=== PATIENT | female | born 1995 | race Caucasian/White ===

== ENCOUNTER 2018-11-19 18:52 | Inpatient (IN) ==
[2018-11-19 19:21] LABS: BILIRUBIN URINE NEGATIVE (NEGATIVE); BLOOD URINE NEGATIVE (NEGATIVE); COLOR YELLOW; GLUCOSE URINE NEGATIVE (NEGATIVE); KETONE URINE NEGATIVE (NEGATIVE); LEUKOCYTES URINE NEGATIVE (NEGATIVE); NITRITE URINE NEGATIVE (NEGATIVE); PROTEIN URINE NEGATIVE (NEGATIVE); SP GRAVITY URINE 1.024; TURBIDITY URINE HAZY (CLEAR); UR EPITHELIAL CELLS >10 /HPF (<10); URINE BACTERIA 2+ /HPF; URINE RBC <10 /HPF (<10); URINE SOURCE CLEAN CATCH; URINE WBC <10 /HPF (<10); UROBILINOGEN URINE NORMAL (NORMAL)
[2018-11-19 19:29] LABS: BASO# 0.05 X1000 (0.0-0.2); BASO% 0.7 % (0.0-0.8); EOS# 0.23 X1000 (0.0-0.7); EOS% 3.1 % (0.0-10.0); HEMATOCRIT 35.4 % (37.0-47.0); HEMOGLOBIN 11.6 g/dL (12.0-16.0); IMM GRAN# 0.02 X1000 (0.0-0.04); IMM GRAN% 0.3 % (0.0-0.5); LYMPH% 32.7 % (20.5-51.1); MCH 28.4 PG (27-31); MCHC 32.8 g/dL (33-37); MCV 86.8 FL (81-99); MONO# 0.51 X1000 (0.11-0.59); MONO% 6.9 % (1.7-9.3); MPV 10.5 FL (7.4-10.4); NEUT# 4.14 X1000 (1.4-6.5); NEUT% 56.3 % (42.2-75.2); PLT 343 X1000 (130-400); RBC 4.08 XMIL (4.2-5.4); RDW 13.3 % (11.5-14.5); WBC 7.35 X1000 (4.8-10.8)
[2018-11-19 19:46] LABS: AGAP 13; ALB/GLOB RATIO 1.5; ALBUMIN 4.2 g/dL (3.5-5.0); ALKALINE PHOSPHATASE 57 U/L (32-104); BUN 14 mg/dL (8-22); CALCIUM 9.2 mg/dL (8.8-10.2); CHLORIDE 104 mmol/L (98-107); COSMO 279; CREATININE 0.7 mg/dL (0.5-0.9); ESTIMATED GFR > 60; GLUCOSE 116 mg/dL (70-104); GOT 18 U/L (10-30); GPT 13 U/L (10-36); POTASSIUM 4.2 mmol/L (3.5-5.1); SODIUM 139 mmol/L (136-145); TCO2 22 mmol/L (25-35); TOTAL BILIRUBIN 0.21 mg/dL (0.20-1.00)
[2018-11-19 20:09] LABS: AMYLASE 50 U/L (20-200); LIPASE 43 U/L (13-60)
[2018-11-19 21:19] LABS: UR AMPHETAMINES QUAL PRESUMPTIVE POSITIVE (NONE DETECT); UR BARBITUATES QUAL NONE DETECTED (NONE DETECT)
[2018-11-19 21:20] LABS: UR BENZODIAZEPIN QUAL NONE DETECTED (NONE DETECT); UR CANNABINOIDS QUAL NONE DETECTED (NONE DETECT); UR COCAINE QUAL NONE DETECTED (NONE DETECT); UR METHADONE QUAL NONE DETECTED (NONE DETECT); UR OPIATES QUAL NONE DETECTED (NONE DETECT); UR OXYCODONE QUAL NONE DETECTED (NONE DETECT); UR PCP QUAL NONE DETECTED (NONE DETECT)
[2018-11-20] MEDS ORDERED: ZOFRAN IV PRN ×2 (00:03→02:57)
[2018-11-20] MEDS ORDERED: NS 1,000 ML IV ONE (00:03)
[2018-11-20] MEDS ORDERED: MORPHINE IV PRN (00:03)
[2018-11-20] MEDS ORDERED: TORADOL IV PRN (00:03)
--- NOTE | 2018-11-20 00:03 | PROVIDER DOCUMENTATION ---
This chart was entered by Sadia Desouza Scribe, acting as scribe for Piper Thomas MD. HPI-Abdominal Pain/GI Problem - General Chief Complaint: Abdominal Pain Stated Complaint: GALLBLADDER PROBLEMS Time Seen by Provider: 11/19/18 21:10 Allergies/Adverse Reactions: Patient Allergies Allergy/AdvReac Type Severity Reaction Status Date / Time apple Allergy HIVES Verified 11/17/18 20:23 coconut Allergy HIVES Verified 11/17/18 20:23 Penicillins Allergy ANAPHYLAXIS Verified 11/17/18 20:23 Home Medications: Home Medication List Medication Instructions Recorded Confirmed Last Taken Type NK [No Home Medications] 11/17/18 11/17/18 Unknown History - History of Present Illness-ABD Nature of Presenting Problems: 23 yof c/o ruq pain, nvd and syncopal episodes when pain occurs. pt is poor historian but sts she has been to hospital 5 different times and to 3 different er's for similar symptoms. pt was to have sx in h[place] to remove gall bladder but never went and has never followed up with a surgeon. pt has no pcp. pt denies fever and dysuria. Abdominal Pain Onset Location: reports: RUQ Pain Radiation: reports: no radiation Review of Systems - Adult - REVIEW OF SYSTEMS - ADULT Constitutional: reports: no symptoms reported Eyes: reports: no symptoms reported Ears, Nose, Mouth & Throat: reports: no symptoms reported Cardiovascular: reports: no symptoms reported Respiratory: reports: no symptoms reported Gastrointestinal: reports: see HPI, abdominal pain (ruq), diarrhea, nausea, vomiting. denies: constipation, poor appetite, rectal bleeding Genitourinary: reports: no symptoms reported. denies: dysuria, frequency, incontinence Musculoskeletal: reports: no symptoms reported Integumentary: reports: no symptoms reported Neurological: reports: no symptoms reported Psychiatric: reports: no symptoms reported Endocrine: reports: no symptoms reported Hematologic/Lymphatic: reports: no symptoms reported Allergic/Immunologic: reports: no symptoms reported All Other Systems: Reviewed and Negative Past History - Adult - PAST MEDICAL HISTORY-ADULT Review of Records: reports: Old Records Reviewed, Nursing Assessment Review, Medications Reviewed, Social history reviewed & non-contributory. Major Childhood Illnesses: reports: denies history Cardiovascular: reports: denies history Respiratory: reports: denies history Gastrointestinal: reports: denies history Obstetrical/Gynecological: reports: denies history Genitourinary: reports: denies history Musculoskeletal: reports: denies history Neurological: reports: denies history Endocrine/Immune: reports: denies history Other Conditions: reports: denies history - IMMUNIZATION STATUS Childhood Immunizations: See Nurse Assessment Flu Vaccine: See Nurse Assessment - FAMILY HISTORY Family History: reviewed, not pertinent Physical Exam-General - PHYSICAL EXAM-ADULT Initial Vital Signs Reviewed: Yes - CONSTITUTIONAL General Appearance: appears well, alert, mild distress (uncomfortable appearing) - EYES Eyes: PERRL/EOMI, pink conjunctivae - HEAD, EARS, NOSE, MOUTH & THROAT HENMT: normocephalic/atraumatic, moist mucous membranes - NECK Neck: non-tender, full range of motion, supple, normal inspection - RESPIRATORY Respiratory: chest non-tender, lungs clear, normal breath sounds - CARDIOVASCULAR Cardiovascular: normal peripheral pulses, regular rate, rhythm - GASTROINTESTINAL (ABDOMEN) Abdominal Exam: normal bowel sounds, soft, tenderness (ruq to palp mild). negative: non tender, distended, rebound - LYMPHATIC Lymphatic: no adenopathy - MUSCULOSKELETAL Back Exam: normal inspection, no CVA tenderness, no vertebral tenderness Extremity: normal range of motion, non-tender, normal inspection Peripheral Pulses: radial (R): 2+, radial (L): 2+ - SKIN Integumentary: normal color, normal turgor, warm/dry - NEUROLOGIC Neurologic: grossly normal, no motor/sensory deficits - PSYCHIATRIC Psych/Mental Status: normal mood/affect, normal thought content, normal thought process, oriented x 3 Progress - PLAN OF CARE/RESULTS Progress/Plan/Lab Results: Vital Signs - 8 hr 11/19/18 18:55 Temperature 97.5 F L Pulse Rate 98 H Respiratory Rate 17 Blood Pressure 99/66 O2 Sat by Pulse Oximetry 99 Bedside Urine ED: Urine Bedside Start: 11/19/18 19:09 Freq: ORDERED Status: Active Protocol: Activity Type Activity Date Activity User E-Sign Co-Sign Detail Recorded Client Recorded Date Recorded By Document 11/19/18 19:10 [id number] 11/19/18 19:10 [id number] 11/19/18 19:10 Point of Care [Bedside Point of Care] -Lot # [id number] - Results Negative -Control Line Visible? Yes Laboratory Results - last 24 hr 11/19/18 11/19/18 11/19/18 19:08 19:09 19:09 WBC 7.35 RBC 4.08 L Hgb 11.6 L Hct 35.4 L MCV 86.8 MCH 28.4 MCHC 32.8 L RDW Std Deviation 13.3 Plt Count 343 MPV 10.5 H Immature Gran % (Auto) 0.3 Neut % (Auto) 56.3 Lymph % (Auto) 32.7 [place] % (Auto) 6.9 Eos % (Auto) 3.1 Baso % (Auto) 0.7 Immature Gran # (Auto) 0.02 Neut # (Auto) 4.14 Lymph # (Auto) 2.40 [place] # (Auto) 0.51 Eos # (Auto) 0.23 Baso # (Auto) 0.05 Sodium 139 Potassium 4.2 D Chloride 104 Carbon Dioxide 22 L Anion Gap 13 BUN 14 Creatinine 0.7 Estimated GFR/1.73 m2 > 60 BUN/Creatinine Ratio 20 Glucose 116 H Calculated Osmolality 279 Calcium 9.2 Total Bilirubin 0.21 AST 18 ALT 13 Alkaline Phosphatase 57 Total Protein 7.0 Albumin 4.2 Globulin 2.8 Albumin/Globulin Ratio 1.5 Amylase 50 Lipase 43 Urine Source Urine Color Urine Turbidity Urine pH Ur Specific [place] Urine Protein Ur Glucose (Stick) Ur Ketones (Stick) Urine Blood Urine Nitrite Urine Bilirubin Urobilinogen Dipstick Urine Leukocytes Urine WBC (Auto) Urine RBC (Auto) U Epithel Cells (Auto) Urine Bacteria (Auto) Urine Opiates Screen Ur Oxycodone Screen Ur Methadone, Qual Ur Barbiturates Screen Ur Phencyclidine Scrn Ur Amphetamines Screen U Benzodiazepines Scrn Urine Cocaine Screen U Cannabinoids Screen 11/19/18 11/19/18 19:09 19:47 WBC RBC Hgb Hct MCV MCH MCHC RDW Std Deviation Plt Count MPV Immature Gran % (Auto) Neut % (Auto) Lymph % (Auto) [place] % (Auto) Eos % (Auto) Baso % (Auto) Immature Gran # (Auto) Neut # (Auto) Lymph # (Auto) [place] # (Auto) Eos # (Auto) Baso # (Auto) Sodium Potassium Chloride Carbon Dioxide Anion Gap BUN Creatinine Estimated GFR/1.73 m2 BUN/Creatinine Ratio Glucose Calculated Osmolality Calcium Total Bilirubin AST ALT Alkaline Phosphatase Total Protein Albumin Globulin Albumin/Globulin Ratio Amylase Lipase Urine Source CLEAN CATCH Urine Color YELLOW Urine Turbidity HAZY Urine pH 6.0 Ur Specific [place] 1.024 Urine Protein NEGATIVE Ur Glucose (Stick) NEGATIVE Ur Ketones (Stick) NEGATIVE Urine Blood NEGATIVE Urine Nitrite NEGATIVE Urine Bilirubin NEGATIVE Urobilinogen Dipstick NORMAL Urine Leukocytes NEGATIVE Urine WBC (Auto) <10 Urine RBC (Auto) <10 U Epithel Cells (Auto) >10 A Urine Bacteria (Auto) 2+ Urine Opiates Screen NONE DETECTED Ur Oxycodone Screen NONE DETECTED Ur Methadone, Qual NONE DETECTED Ur Barbiturates Screen NONE DETECTED Ur Phencyclidine Scrn NONE DETECTED Ur Amphetamines Screen PRESUMPTIVE POSITIVE A U Benzodiazepines Scrn NONE DETECTED Urine Cocaine Screen NONE DETECTED U Cannabinoids Screen NONE DETECTED Orders Category Date Time Status ED: Urine Bedside ORDERED Care 11/19/18 19:09 Active US GB < RUQ (LIMITED) [US] Stat Exams 11/19/18 21:25 Ordered AMYLASE [CHEM] Stat Lab 11/19/18 19:08 Completed CBC WITH DIFF [HEME] Stat Lab 11/19/18 19:09 Completed COMPREHENSIVE METABOLIC PANEL [CHEM] Stat Lab 11/19/18 19:09 Completed LIPASE [CHEM] Stat Lab 11/19/18 19:08 Completed URINALYSIS [URINALYSIS] Stat Lab 11/19/18 19:09 Completed URINE DRUG SCREEN Stat Lab 11/19/18 19:47 Completed Result Diagrams: 11/19/18 19:09 11/19/18 19:09 - ULTRASOUND (By Radiology) 1 US Study: Gallbladder Impression: Abnormal (Large gallstone, GB appears decompressed around the gallstone with GB wall thickening of 8mm which is concerning for acute cholecystitis. Negative sonographic figueroa sign. Nuclear medicine HIDA scan may be performed.) - CONSULTS/PCP/HOSPITALIST Notification #1 *Consult/PCP/Hospitalist*: Dr Braswell Time Discussed: 00:01 Reason/Comments: Admit to him, give Zosyn Consult Disposition: Admit Departure - Departure Date of Disposition Decision: 11/20/18 Time of Disposition Decision: 00:03 DIAGNOSIS: Acute cholecystitis Disposition: ADMITTED INPATIENT 09 Certified Medical Emergency: Emergent Condition: Stable Referrals and Follow-Ups: None,PCP [Primary Care Provider] - - Critical Care Note This patient required my direct & personal management of CC.: No Attestation - Physician/ RIC Attestation Patient care was provided by Advanced Practice Provider:: No The physician spent face to face time with patient:: Yes Advanced Practice Provider documentation review:: Supervising physician onsite and consulted in the evaluation and care of this patient. The physician did have a face to face encounter with the patient. This chart was documented by the indicated scribe, (Sadia Desouza, Bebe) and accurately reflects the services I performed and decisions made by me, Piper Thomas MD, as attested by the provider's signature.
[2018-11-20] MEDS ORDERED: ZOSYN 3.375 GM in NS 50 ML IV SCH ×2 (00:15→03:00)
[2018-11-20] MEDS ORDERED: ROCEPHIN 1 GM in NS 50 ML IV ONE (00:16)
[2018-11-20] MEDS: MORPHINE IV PRN ×5 (03:44→20:03)
[2018-11-20] MEDS: LR 1,000 ML IV SCH (03:44)
[2018-11-20] MEDS: LEVAQUIN 750 MG/D5W 750 MG/150 ML IVPB IV SCH (06:09)
--- NOTE | 2018-11-20 06:09 | HISTORY AND PHYSICAL ---
ADMITTING DIAGNOSIS: Acute cholecystitis. HISTORY OF PRESENT ILLNESS: A 23-year-old female with complaints of right upper quadrant pain. She says it has been coming and going, but it is worse on the day of presentation. She has been told she has had multiple gallstones, but has not had anything done. Again, this is mostly in the right upper quadrant postprandial pain. PAST MEDICAL HISTORY: None. PAST SURGICAL HISTORY: None. SOCIAL HISTORY: Current smoker. FAMILY HISTORY: Reviewed with patient. ALLERGIES: Apple, coconuts and penicillin. HOME MEDICATIONS: Reviewed and MAR reviewed. REVIEW OF SYSTEMS: A full 10 point review of systems obtained. Negative unless as specified in HPI. PHYSICAL EXAMINATION: VITAL SIGNS: Patient is currently afebrile. Her vital signs are stable. GENERAL: No acute distress. HEENT: Normocephalic, atraumatic. Pupils equal, round, and reactive to light. Mucous membranes moist. Oropharynx benign. NECK: Supple. Trachea midline. CARDIOVASCULAR: Regular rate and rhythm. LUNGS: Grossly clear. ABDOMEN: Soft. Tender to palpation in the right upper quadrant. EXTREMITIES: Moves all extremities. NEUROLOGIC: Grossly intact. SKIN: No signs of jaundice. VASCULAR: All extremities perfused. LABORATORY: White blood count is normal. Hematocrit 35, platelet count 343,000, bilirubin, AST, ALT and alkaline phosphatase are all normal. She is presumptive positive for amphetamines. Ultrasound reviewed and potential for cholecystitis. ASSESSMENT AND PLAN: A 23-year-old female with right upper quadrant pain and possible cholecystitis. Possible cholecystitis. At this time, we will put her on antibiotics. Discussed with her the risks, benefits, and alternatives of surgical intervention. Risks including, but not limited to bleeding, infection, risk of anesthesia, risk of common bile duct injury and bile leak, and risk of injuring other structures. She voiced understanding, and wishes to proceed with the procedure. We will try to schedule that for today. cc: Shade Collado MD
--- NOTE | 2018-11-20 07:58 | Diag Imaging Result Doc PS360 ---
US GB < RUQ (LIMITED) - 11/19/2018 INDICATION: ruq pain TECHNIQUE: COMPARISON: None FINDINGS: There is a shadowing gallstone the gallbladder measuring about 1.5 cm. The gallbladder is nearly completely collapsed. The liver, pancreas, and right kidney are normal. Common bile duct measures 4 mm. Aorta, IVC, and main portal vein are patent. IMPRESSION: Large gallstone the gallbladder. Gallbladder is completely collapsed. Nonspecific. Consider further evaluation with a nuclear medicine HIDA scan. Electronically signed by Jay Vizcarra 11/20/2018 7:56 AM
[2018-11-20] MEDS: FLAGYL 500 MG/NS 500 MG/100 ML IVPB IV SCH ×2 (08:26→16:48)
[2018-11-20] MEDS ORDERED: SODIUM CHLORIDE 0.9% ONE (12:52)
[2018-11-20] MEDS ORDERED: MARCAINE 0.25% PF/EPI 1:200,000 ONE (12:52)
[2018-11-20] MEDS ORDERED: LR 1,000 ML ONE (12:52)
[2018-11-20] MEDS ORDERED: VERSED ONE ×2 (12:59→13:11)
[2018-11-20] MEDS ORDERED: FENTANYL ONE (13:00)
[2018-11-20] MEDS ORDERED: DIPRIVAN 1% ONE (13:00)
[2018-11-20] MEDS ORDERED: QUELICIN (DOSE) ONE (13:45)
[2018-11-20] MEDS ORDERED: ZEMURON ONE (13:45)
[2018-11-20] MEDS ORDERED: ZOFRAN ONE (13:45)
[2018-11-20] MEDS ORDERED: XYLOCAINE-MPF 2% ONE (13:45)
[2018-11-20] MEDS: DILAUDID ONE ×2 (14:20→14:29)
[2018-11-20] MEDS ORDERED: NORCO-10 ONE (14:38)
--- NOTE | 2018-11-20 14:49 | OPERATIVE NOTE ---
PROCEDURE DATE: 11/20/2018 PREOPERATIVE DIAGNOSES: 1. Cholelithiasis. 2. Acute cholecystitis. POSTOPERATIVE DIAGNOSES: 1. Cholelithiasis. 2. Acute cholecystitis. PROCEDURE: Laparoscopic cholecystectomy. SURGEON: Shade Collado MD. COACH PROFESSIONAL ATHLETES: Dr. Camrona. Dr. Carmona assisted with the entirety of the case. His presence was crucial for the identification of anatomy and dissection. ANESTHESIA: General endotracheal. INTRAOPERATIVE FINDINGS: As dictated. COMPLICATIONS: None at time of dictation. ESTIMATED BLOOD LOSS: 5 mL. SPECIMENS REMOVED: Gallbladder. BRIEF HISTORY: A 23-year-old female presenting with right upper quadrant pain. She had an ultrasound that showed cholecystitis, thought that she would benefit from a cholecystectomy. The risks, benefits and alternatives were discussed. Risks including but not limited to bleeding, infection, risk of anesthesia, risk of common bile duct injury and bile leak, risk of injuring other organs discussed. All questions answered. DESCRIPTION OF PROCEDURE: After informed consent was obtained, patient brought to the operative theater, transferred to the operative table, placed in supine position. General endotracheal anesthesia was then performed without complication. A formal time out was then performed confirming patient, date, procedure. All in agreement. At that time attention was turned to the abdomen. An infraumbilical incision was made through which using Optiview technique we inserted a 12 mm trocar, connected it to insufflation. Pneumoperitoneum was achieved. Under direct visualization, we placed 3 more trocars, all 5 mm, one subxiphoid and two in the right upper quadrant. Using these, the gallbladder was identified, retracted cephalad. We were able to dissect out the cystic duct and cystic artery. To achieve the critical view of safety, we doubly clipped and ligated the cystic duct and cystic artery, then dissected the gallbladder off the gallbladder fossa. We placed it in an endobag and brought out through the infraumbilical incision. We then reexamined the clips. They were in good position. No active bleeding. The gallbladder fossa was not bleeding. We irrigated out the abdomen until the suction fluid was clear. We then closed the infraumbilical incision with 0 Vicryl on a Yong-Edna device, removed all trocars, disconnected insufflation. Pneumoperitoneum was released. All skin incisions closed with 4-0 Monocryl. The patient tolerated the procedure well and was transferred back to the recovery room. cc: Shade Collado MD MTDD
[2018-11-21] MEDS: FLAGYL 500 MG/NS 500 MG/100 ML IVPB IV SCH ×2 (00:13→07:47)
[2018-11-21] MEDS: LR 1,000 ML IV SCH (00:17)
[2018-11-21] MEDS: NORCO-10 PO PRN ×2 (02:41→08:50)
--- NOTE | 2018-11-21 06:27 | GENERAL SURGERY PROGRESS NOTE ---
DATE: 11/21/2018 Discussed with nurse. Overall, her postoperative status has not been much of an issue. The patient says she is actually doing well. There were some logistical issues of where the patient actually could be discharged yesterday which kept her at the hospital. From a surgical point of view, she could still be discharged. We will need to work with [employer] [facility] to see where we can actually send her. cc: Shade Collado MD
[2018-11-21 08:49] VITALS: BP 117/67
[2018-11-21] MEDS: LEVAQUIN 750 MG/D5W 750 MG/150 ML IVPB IV SCH (08:58)
== END 2018-11-21 12:59 | disposition home or self-care (01) | DRG 419 ==
LOC: ED 18:52 → 4N 11-20 01:12
PROVIDERS: ADMIT Surgery; ATTEND Surgery
CPT/HCPCS: 76705; 80053; 80101; 80301; 80307; 80324; 80345; 80346; 80353; 80358; 80361; 80365; 81001; 82150; 83690; 83992; 85025; 88304; 94761; 94799; A9270; C1751; G0431; G0434; G0479; G0480; J0330; J1170; J1956; J2250; J2270; J2405; J2543; J3010; J7030; J7120; Q9966; Q9967; S0030